=== PATIENT | female | born 1980 | race Caucasian/White ===

== ENCOUNTER 2020-04-19 20:26 | Emergency (ER) | payer OTHER, MEDICAID ==
[~2020-04-19] VITALS: Ht 149.9 cm; Wt 79.4 kg
[2020-04-19] MEDS ORDERED: TEGRETOL XR100 MG PO (20:43)
[2020-04-19] MEDS ORDERED: OMEPRAZOLE40 MG PO (20:43)
[2020-04-19] MEDS ORDERED: XYZAL5 MG PO (20:44)
[2020-04-19] MEDS ORDERED: CLARITIN10 M3 PO (20:45)
[2020-04-19] MEDS ORDERED: ZYRTEC10 M5 PO (20:45)
[2020-04-19 22:07] VITALS: BP 124/78
== END 2020-04-19 22:08 | disposition home or self-care (01) ==
LOC: M.ERS 20:26
DX: S09.90XA Unspecified injury of head, initial encounter (principal); M54.2 Cervicalgia; K21.9 Gastro-esophageal reflux disease without esophagitis; Z90.49 Acquired absence of other specified parts of digestive tract; V89.2XXA Person injured in unspecified motor-vehicle accident, traffic, initial encounter; Y93.89 Activity, other specified; Y92.89 Other specified places as the place of occurrence of the external cause; Y99.8 Other external cause status